=== PATIENT | male | born 1975 | race Caucasian/White ===

== ENCOUNTER 2017-03-12 22:46 | Observation (INO) | payer OTHER ==
[2017-03-12 23:00] VITALS: BMI 26.5
[2017-03-13] MEDS ORDERED: KETOROLAC TROMETHAMINE 60 MG/2 ML VIAL IM ONE (00:18)
[2017-03-13] MEDS ORDERED: diazePAM 2 MG TABLET PO ONE (00:19)
[2017-03-13] MEDS ORDERED: KETOROLAC TROMETHAMINE 60 MG/2 ML VIAL ONE (00:27)
[2017-03-13] MEDS ORDERED: diazePAM 2 MG TABLET ONE (00:27)
--- NOTE | 2017-03-13 00:50 | PDOC ---
History of Present Illness - History of Present Illness Initial Comments: 03/13/17 00:50 The patient is a 41 year old male who was BIBA, with no significant past medical history, and presents to the emergency department with lower back pain radiating down his leg. Patient states that around 6:00 pm today he went to the bathroom and began experiencing lower back pain that radiates down his leg. He states that he took Diazepam today but it did not relieve his pain. Patient states he is unable to ambulate due to his pain. He denies any recent fevers, chills, headache or dizziness. He denies any recent nausea, vomit, diarrhea or constipation. He denies any recent chest pain or shortness of breath. He denies any recent dysuria, frequency, urgency or hematuria. Allergies: NKA Past surgical history: cholecystectomy Social History: Nonsmoker. Denies EtOH use and recreational drug use. Primary Care Physician: Cristina Rodriguez <Anastasia Sykes - Last Filed: 03/13/17 00:50> <Harriett Mendez - Last Filed: 03/20/17 00:02> - General Chief Complaint: Back Pain Stated Complaint: BACK PAIN Time Seen by Provider: 03/12/17 23:21 Past History <Anastasia Sykes - Last Filed: 03/13/17 00:50> - Past Medical History COPD: No - Surgical History Cholecystectomy: Yes - Suicide/Smoking/Psychosocial Hx Smoking History: Never smoked Have you smoked in the past 12 months: Yes Number of Cigarettes Smoked Daily: 1 Information on smoking cessation initiated: No Hx Alcohol Use: No Drug/Substance Use Hx: No Substance Use Type: None <Harriett Mendez - Last Filed: 03/20/17 00:02> - Past Medical History Allergies/Adverse Reactions: Allergies Allergy/AdvReac Type Severity Reaction Status Date / Time No Known Allergies Allergy Verified 01/21/16 11:29 Home Medications: Ambulatory Orders Docusate Sodium [Colace -] 300 mg PO HS capsule 03/16/17 Gabapentin [Neurontin -] 300 mg PO TID #60 capsule 03/16/17 Methylprednisolone [Medrol Dose Faustino] 4 mg PO ASDIR #21 tablet 03/16/17 Polyethylene Glycol 3350 [Miralax 119 gm Btl -] 17 gm PO BID bottle 03/16/17 Tramadol HCl [Ultram -] 50 mg PO Q6H PRN #20 tablet MDD 4 03/16/17 Review of Systems - Review of Systems Comments:: 03/13/17 00:51 CONSTITUTIONAL: Absent: fever, no chills, no fatigue EYES: Absent: visual changes ENT: Absent: ear pain, no sore throat CARDIOVASCULAR: Absent: chest pain, no palpitations RESPIRATORY: Absent: cough, no SOB GI: Absent: abdominal pain, no nausea, no vomiting, no constipation, no diarrhea GENITOURINARY: Absent: dysuria, no frequency, no hematuria MUSCULOSKELETAL: Present: lower back pain, radiates down legs bilaterally. Absent: no arthralgia, SKIN: Absent: rash NEURO: Absent: headache <Anastasia Sykes - Last Filed: 03/13/17 00:50> *Physical Exam - Vital Signs Last Vital Signs Temp Pulse Resp BP Pulse Ox 97.8 F 58 L 20 141/69 99 03/12/17 22:53 03/12/17 22:53 03/12/17 22:53 03/12/17 22:53 03/12/17 22:53 - Physical Exam Comments: 03/13/17 00:51 GENERAL: Well-appearing, well-nourished. No apparent distress. HEENT: Normocephalic, atraumatic. PERRL, EOM intact. CARDIOVASCULAR: Normal S1, S2. Regular rate and rhythm. PULMONARY: Clear to auscultation bilaterally. ABDOMEN: Soft, non-distended, non-tender. EXTREMITIES: Limited ROM in lower extremities, secondary to pain. No gross deformities. SKIN: Warm, dry. No rash NEUROLOGICAL: Strength and sensation intact.No focal neurological deficits.No incontinence <Anastasia Sykes - Last Filed: 03/13/17 00:50> - Vital Signs Last Vital Signs Temp Pulse Resp BP Pulse Ox 97.8 F 58 L 20 141/69 99 03/12/17 22:53 03/12/17 22:53 03/12/17 22:53 03/12/17 22:53 03/12/17 22:53 <Harriett Mendez - Last Filed: 03/20/17 00:02> ED Treatment Course - LABORATORY CBC & Chemistry Diagram: 03/13/17 05:30 03/13/17 05:30 - RADIOLOGY Radiology Studies Ordered: Category Date Time Status LUMBAR SPINE CT W/O CONTRAST [CT] Stat CT Scan 03/13/17 00:18 Ordered <Harriett Mendez - Last Filed: 03/20/17 00:02> Medical Decision Making - Medical Decision Making 03/13/17 02:26 41-year-old male in no severe past medical history by ambulance for severe back pain. He states that he was on the toilet at 6:00 and developed severe back pain, was not able to stand. He denies any weakness or numbness in his lower legs, there is no saddle anesthesia, motor strength 5 out of 5 Patient is alert and oriented 3, lungs are clear to auscultation, abdomen soft , extremities have no deformity,. Neurologically, there are no neurovascular deficits in his lower extremities. Patient given Toradol, Valium CAT scan of the lumbar vertebra but is negative for any subluxation, fracture. There is a small disc bulge L4-L5 The patient's pain is left-sided and is in his buttocks Impression probable sciatica Patient still has some discomfort will be given Percocet Case signed out to sister <Harriett Mendez - Last Filed: 03/20/17 00:02> *DC/Admit/Observation/Transfer - Attestations Scribe Attestion: 03/13/17 00:52 Documentation prepared by Anastasia Sykes, acting as bacteriologist medical for Harriett Mendez MD. <Anastasia Sykes - Last Filed: 03/13/17 00:50> <Harriett Mendez - Last Filed: 03/20/17 00:02> Diagnosis at time of Disposition: Low back pain - Discharge Dispostion Disposition: HOME Condition at time of disposition: Improved
[2017-03-13] MEDS ORDERED: KETOROLAC TROMETHAMINE 30 MG/1 ML VIAL IVPUSH ONE (05:44)
[2017-03-13] MEDS ORDERED: diazePAM CARPU-JECT 10 MG/2 ML DISP.SYRIN IVPUSH ONE (05:44)
[2017-03-13] MEDS ORDERED: KETOROLAC TROMETHAMINE 30 MG/1 ML VIAL ONE (05:56)
[2017-03-13 06:11] LABS: BASOPHIL 0.9 % (0-2.0); EOSINOPHIL 3.2 % (0-4.5); MCH 31.3 pg (25.7-33.7); MCHC 34.8 g/dl (32.0-35.9); MEAN PLT VOLUME 8.7 fl (7.5-11.1); NEUTROPHILS 53.3 % (42.8-82.8); PLATELET COUNT 188 K/MM3 (134-434); RDW 13.3 % (11.9-15.9); WHITE BLOOD COUNT 7.1 K/mm3 (4.0-10.0)
[2017-03-13] MEDS ORDERED: LORazepam 2 MG/ML SDV VIAL ONE (06:15)
[2017-03-13 06:23] LABS: INR 1.07 (0.82-1.09); PROTHROMBIN TIME (PATIENT) 12.1 SEC (9.98-11.88)
[2017-03-13 06:33] LABS: ALK PHOS 58 U/L (45-117); ANION GAP 6 (8-16); BILIRUBIN,TOTAL 0.7 mg/dL (0.2-1.0); CALCIUM 8.9 mg/dL (8.5-10.1); CO2 30 mmol/L (21-32); GLUCOSE,RANDOM 91 mg/dL (74-106); SGOT/AST 24 U/L (15-37); SGPT/ALT 62 U/L (12-78); TOT PROT 6.6 g/dl (6.4-8.2)
--- NOTE | 2017-03-13 09:11 | PDOC ---
*Physical Exam - Vital Signs Last Vital Signs Temp Pulse Resp BP Pulse Ox 97.8 F 58 L 20 141/69 99 03/12/17 22:53 03/12/17 22:53 03/12/17 22:53 03/12/17 22:53 03/12/17 22:53 ED Treatment Course - LABORATORY CBC & Chemistry Diagram: 03/13/17 05:30 03/13/17 05:30 - ADDITIONAL ORDERS Additional order review: Laboratory Results 03/13/17 03/13/17 05:30 05:30 PT with INR 12.10 H INR 1.07 Sodium 141 Potassium 4.3 Chloride 105 Carbon Dioxide 30 Anion Gap 6 L BUN 13 Creatinine 1.0 Creat Clearance w eGFR > 60 Random Glucose 91 Calcium 8.9 Total Bilirubin 0.7 AST 24 ALT 62 Alkaline Phosphatase 58 Total Protein 6.6 Albumin 4.0 03/13/17 05:30 RBC 4.85 MCV 90.0 MCHC 34.8 RDW 13.3 MPV 8.7 Neutrophils % 53.3 Lymphocytes % 35.9 Monocytes % 6.7 Eosinophils % 3.2 Basophils % 0.9 - RADIOLOGY Radiology Studies Ordered: Category Date Time Status LUMBAR SPINE MRI W/O CONTRAST [MRI] Stat MRI 03/13/17 08:15 Ordered - Medications Given in the ED: ED Medications Discontinued Medications Generic Name Dose Route Start Last Admin Trade Name Hima PRN Reason Stop Dose Admin Diazepam 2 mg 03/13/17 00:19 03/13/17 00:45 Valium - PO 03/13/17 00:20 2 mg ONCE ONE Administration Diazepam 5 mg 03/13/17 05:44 03/13/17 06:14 Valium Injection - IVPUSH 03/13/17 05:45 Not Given ONCE ONE Ketorolac Tromethamine 60 mg 03/13/17 00:18 03/13/17 00:45 Toradol Injection - IM 03/13/17 00:19 60 mg ONCE ONE Administration Ketorolac Tromethamine 30 mg 03/13/17 05:44 03/13/17 06:14 Toradol Injection - IVPUSH 03/13/17 05:45 30 mg ONCE ONE Administration Lorazepam 1 mg 03/13/17 06:14 03/13/17 06:23 Ativan Injection - IVPUSH 03/13/17 06:15 Not Given ONCE ONE Lorazepam 1 mg 03/13/17 06:22 03/13/17 06:23 Ativan Injection - IVPUSH 03/13/17 06:23 1 mg NOW ONE Administration Oxycodone/Acetaminophen 1 combo 03/13/17 02:26 03/13/17 03:00 Percocet 5/325 - PO 03/13/17 02:27 1 combo ONCE ONE Administration Medical Decision Making - Medical Decision Making 03/13/17 09:26 Patient signed out to me by overnight attending Dr. Carrion pending evaluation for intractable low back pain. Patient has received 2 doses of Toradol, Percocet, Ativan and Valium. On my evaluation this morning the patient states that the pain is minimally improved and continues to complain of 10 out of 10 pain. Right lower extremity has 4 out of 5 strength although is unclear if his strength is limited by pain or due to actual weakness.When I attempted to walk with the patient he is unable to ambulate. Will admit patient to Dr. Parker as obs for intractable lower abdominal pain. MRI ordered to rule out cauda equina syndrome. *DC/Admit/Observation/Transfer Diagnosis at time of Disposition: Low back pain - Discharge Dispostion Condition at time of disposition: Stable Admit: Yes - Referrals Referrals: Cristina Rodriguez [Primary Care Provider] - - Patient Instructions - Post Discharge Activity - Attestations Physician Attestion: 03/13/17 09:31 I, Dr. Judy Moyer MD, attest that this document has been prepared under my direction and personally reviewed by me in its entirety. I further attest, that it accurately reflects all work, treatment, procedures and medical decision -making performed by me.
--- NOTE | 2017-03-13 09:52 | HP ---
CHIEF COMPLAINT: Back pain radiating to left leg PCP: HISTORY OF PRESENT ILLNESS: 41 year-old male with no significant PMH presented to the ED with a complaint of severe low back pain radiating to his left leg. Patient states he has no history of back problems. He cares for his two small children and sometimes feels a twinge in his back from lifting and carrying them. Today he went to the bathroom to have a bowel movement. He did not strain. But while on the toilet he felt a sharp pain in his back that immediately radiated to his left leg. He managed to get to his bedroom. Patient states the pain is 10/10, he cannot describe its character. Pain is tolerable when he is lying flat and not moving. He is unable to sit up, stand, or walk secondary to severe pain. Patient denies any type of trauma. He denies fever, sweats, chills, sick contacts. 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, lives in [place] Allergies No Known Allergies Allergy (Verified 01/21/16 11:29) HOME MEDICATIONS: REVIEW OF SYSTEMS CONSTITUTIONAL: Absent: fever, chills, diaphoresis, generalized weakness, malaise, loss of appetite, weight change HEENT: Absent: rhinorrhea, nasal congestion, throat pain, throat swelling, difficulty swallowing, mouth swelling, ear pain, eye pain, visual changes CARDIOVASCULAR: Absent: chest pain, syncope, palpitations, irregular heart rate, lightheadedness , peripheral edema RESPIRATORY: Absent: cough, shortness of breath, dyspnea with exertion, orthopnea, wheezing, stridor, hemoptysis GASTROINTESTINAL: Absent: abdominal pain, abdominal distension, nausea, vomiting, diarrhea, constipation, melena, hematochezia GENITOURINARY: Absent: dysuria, frequency, urgency, hesitancy, hematuria, flank pain, genital pain MUSCULOSKELETAL: Present: back pain radiating to left thigh Absent: myalgia, arthralgia, joint swelling, neck pain SKIN: Absent: rash, itching, pallor HEMATOLOGIC/IMMUNOLOGIC: Absent: easy bleeding, easy bruising, lymphadenopathy, frequent infections ENDOCRINE: Absent: unexplained weight gain, unexplained weight loss, heat intolerance, cold intolerance NEUROLOGIC: Absent: headache, focal weakness or paresthesias, dizziness, unsteady gait, seizure, mental status changes, bladder or bowel incontinence PSYCHIATRIC: Absent: anxiety, depression, suicidal or homicidal ideation, hallucinations. PHYSICAL EXAMINATION Vital Signs - 24 hr 03/12/17 22:53 Temperature 97.8 F Pulse Rate 58 L Respiratory 20 Rate Blood Pressure 141/69 O2 Sat by Pulse 99 Oximetry (%) GENERAL: Awake, alert, and fully oriented, in no acute distress. HEAD: Normal with no signs of trauma. EYES: Pupils equal, round and reactive to light, extraocular movements intact, sclera anicteric, conjunctiva clear. No lid lag. EARS, NOSE, THROAT: Ears normal, nares patent, oropharynx clear without exudates. Moist mucous membranes. NECK: Normal range of motion, supple without lymphadenopathy, JVD, or masses. LUNGS: Breath sounds equal, clear to auscultation bilaterally. No wheezes, and no crackles. No accessory muscle use. HEART: Regular rate and rhythm, normal S1 and S2 without murmur, rub or gallop. ABDOMEN: Soft, nontender, not distended, normoactive bowel sounds, no guarding, no rebound, no masses. No hepatomegaly or splenomegaly. UPPER EXTREMITIES: 2+ pulses, warm, well-perfused. No cyanosis. No clubbing. No peripheral edema. LOWER EXTREMITIES: 2+ pulses, warm, well-perfused. No calf tenderness. No peripheral edema. NEUROLOGICAL: Cranial nerves II-XII intact. Normal speech. Normal gait. 5/5 motor bilateral lower extremities PSYCHIATRIC: Cooperative. Good eye contact. Appropriate mood and affect. SKIN: Warm, dry, normal turgor. Laboratory Results - last 24 hr 03/13/17 03/13/17 03/13/17 05:30 05:30 05:30 WBC 7.1 RBC 4.85 Hgb 15.2 Hct 43.6 MCV 90.0 MCH 31.3 MCHC 34.8 RDW 13.3 Plt Count 188 MPV 8.7 Neutrophils % 53.3 Lymphocytes % 35.9 Monocytes % 6.7 Eosinophils % 3.2 Basophils % 0.9 PT with INR 12.10 H INR 1.07 Sodium 141 Potassium 4.3 Chloride 105 Carbon Dioxide 30 Anion Gap 6 L BUN 13 Creatinine 1.0 Creat Clearance w eGFR > 60 Random Glucose 91 Calcium 8.9 Total Bilirubin 0.7 AST 24 ALT 62 Alkaline Phosphatase 58 Total Protein 6.6 Albumin 4.0 ASSESSMENT/PLAN 41 year-old male with no significant PMH present to the ED with severe low back pain radiating to left thigh. Lumbar disc disease with left radiculopathy --CT findings disc bulges at L4-L5 and L5-S1 --MRI pending FEN Fluids: PO intake adequate Electrolytes: replete as indicated Nutrition: regular diet Dispo: continues to require observation. Full code. Visit type - Emergency Visit Emergency Visit: Yes ED Registration Date: 03/13/17 Care time: The patient presented to the Emergency Department on the above date and was hospitalized for further evaluation of their emergent condition. - New Patient This patient is new to me today: Yes Date on this admission: 03/13/17 - Critical Care Critical Care patient: No Total Critical Care Time (in minutes): 35 Critical Care Statement: The care of this patient involved high complexity decision making to prevent further life threatening deterioration of the patient 's condition and/or to evaluate & treat vital organ system(s) failure or risk of failure.
[2017-03-13] MEDS: oxyCODONE HCL 5 MG TABLET PO PRN (17:57)
[2017-03-13] MEDS ORDERED: oxyCODONE HCL 5 MG TABLET ONE (17:57)
[2017-03-14] MEDS: oxyCODONE HCL 5 MG TABLET PO PRN ×4 (05:21→21:15)
--- NOTE | 2017-03-14 09:34 | PN ---
Physical Exam: SUBJECTIVE: Patient seen and examined. on speaker phone. Still with left radicular pain. Oxycodone makes him sleepy and he has no pain when he sleeps. Does not want morphine at this point. Unable to sit up, stand, or walk secondary to pain. Very reluctant to proceed to surgery, wants conservative medical management and physical therapy. Advised Dr. Ruiz will see him today. Agreed to daily lovenox. OBJECTIVE: Vital Signs Period Temp Pulse Resp BP Sys/Hall Pulse Ox Last 24 Hr 97.9 F-98.9 F 56-68 17-20 102-122/49-72 95-98 GENERAL: The patient is awake, alert, and fully oriented, in mild distress secondary to pain. Irritable. LUNGS: Breath sounds equal, clear to auscultation bilaterally HEART: Regular rate and rhythm, S1, S2 without murmur, rub or gallop. ABDOMEN: Soft, nontender, nondistended, normoactive bowel sounds EXTREMITIES: 2+ pulses, warm, well-perfused, no edema. NEUROLOGICAL: Cranial nerves II-XII intact. Normal speech. 5/5 motor bilateral lower extremities Active Medications Generic Name Dose Route Start Last Admin Trade Name Freq PRN Reason Stop Dose Admin Acetaminophen 650 mg 03/13/17 15:10 Tylenol - PO Q6H PRN FEVER OR PAIN Oxycodone HCl 10 mg 03/13/17 15:09 03/14/17 05:21 Roxicodone - PO 10 mg Q6H PRN Administration PAIN ASSESSMENT/PLAN 41 year-old male with no significant PMH present to the ED with severe low back pain radiating to left thigh. Lumbar disc disease with left radiculopathy --CT findings disc bulges at L4-L5 and L5-S1 --MRI: L5-S1 small left side disc protrusion indenting on left nerve root --oxycodone and tylenol for pain PRN; offered patient morphine but he declines at this time --Dr. Ruiz consult pending FEN Fluids: PO intake adequate Electrolytes: replete as indicated Nutrition: regular diet Dispo: continues to require observation. Full code. Visit type - Emergency Visit Emergency Visit: Yes ED Registration Date: 03/13/17 Care time: The patient presented to the Emergency Department on the above date and was hospitalized for further evaluation of their emergent condition. - New Patient This patient is new to me today: No - Critical Care Critical Care patient: No
[2017-03-14] MEDS: ENOXAPARIN NA (PORCINE) 40 MG/0.4 ML DISP.SYRIN SQ SCH (10:01)
--- NOTE | 2017-03-14 17:13 | PN ---
Progress Note (short form) - Note Progress Note: NEUROSURGERY CONSULT DICTATED Patient examined Chart reviewed History obtained 2 days h/o L LBP to L buttock, posterior thigh, and calf Denies weakness, bowel/bladder dysfunction PE; AF, VSS HEENT- NC/AT; Neck- supple; Cor- RRR; Lungs- CTA B; Abd- benign; Ext- no sign of DVT, 2+ pulses Neuro- A/A/Ox4 CN- intact II-XII; Motor- 5/5 except L foot ev 4-4+; Sensation- intact LT/ vibration; DTR- 1+ B Back- tender L buttock, + SLR on L at [address] LS spine- mild spondylosis and facet arthrosis; L L5-S1 disc bulge with foramenal stenosis MRI LS spine- multilevel face arthorsis; mild L4-5 central disc bulge; L L5-S1 facet hypertrophy and small foramenal disc bulge; s slightly wollen L L5 root Steroid (medrol) Neurontin PT for modalities and truncal stabilization Also discussed possible EPSI if persistent pain Absolute majority lumbar disc herniation condition improves with time and medical treatment, though foramenal disc herniation has higher propensity of needing surgical decompression Pros and cons of treatment approaches discussed Pt would like only medical treatments was on the phone during the above discussion
[2017-03-14] MEDS: GABAPENTIN 300 MG CAPSULE (FP) PO SCH ×2 (19:03→21:16)
[2017-03-14] MEDS: ACETAMINOPHEN 325 MG TABLET (FP) PO PRN (21:15)
[2017-03-14] MEDS: methylPREDNISolone 4 MG TABLET PO SCH (21:16)
[2017-03-15] MEDS: GABAPENTIN 300 MG CAPSULE (FP) PO SCH ×3 (06:19→22:34)
--- NOTE | 2017-03-15 06:37 | CONS ---
DATE OF CONSULTATION: DATE OF DICTATION: 03/14/2017 REQUESTING PHYSICIAN: Jennifer Montes De Oca NP CHIEF COMPLAINT: Left L5 radiculopathy. HISTORY OF PRESENT ILLNESS: The patient is a 41-year-old ambidextrous male who complains of 2 days' history of acute onset left-sided back pain. He frequently lifts up his 1- and 4-year-old children but has never had any problems with them. Two days ago, he lifted up his children and felt a twinge in his left-sided lower back. He started experiencing pain radiating down into the left buttock, posterior side, and calf. He was in so much pain that he could barely get up from a toilet. There is no bowel or bladder dysfunction. He denies any weakness, numbness, or tingling. He was not able to get up and was brought in by ambulance yesterday. Even today, despite pain medication, he was not able to get up. He had received valium as well as Percocet. Percocet made him drowsy. Pain is worse with any movement. PAST MEDICAL HISTORY: Noncontributory. CURRENT MEDICATIONS: Lovenox, Roxicodone, and Tylenol. ALLERGIES: There is no known drug allergy. FAMILY HISTORY: Noncontributory except for lower back arthritis in his father. SOCIAL HISTORY: He does not smoke and only drinks alcohol socially. He is with 2 children. REVIEW OF SYSTEMS: Otherwise negative for other major constitutional, head and neck, cardiovascular, pulmonary, gastrointestinal, genitourinary, endocrinological, neurological, psychological problems except for the above. PHYSICAL EXAMINATION: Vital Signs: Temperature is 98.8, blood pressure is 136/68, with a pulse rate of 73, O2 saturation is 98% on room air. HEENT: Shows the gentleman to be normocephalic, atraumatic, anicteric. Neck: Supple with no lymphadenopathy, no carotid bruit. Coronary: Demonstrated a regular rhythm without a murmur. Lungs: Clear to auscultation bilaterally. Abdomen: Benign. Extremities: Show no signs of DVT. Distal pulses are 2+. Neurologic: She is awake, alert, and oriented x4. Cranial nerve examination is intact II-XII. Motor examination shows 5/5 strength except left foot eversion which is 4-4+. Sensory examination is intact to light touch and vibratory sensation. Deep tendon reflexes are 1+ throughout. There is no pathological long-tract sign. Musculoskeletal: Examination of the back shows left-sided sciatic notch tenderness. He has a positive straight-leg raise on the left side at 30 degrees. He also has a positive crossed straight-leg raise on the right at about 45 degrees. LABORATORY: Shows a white blood cell count of 7.1, hemoglobin is 15.2, and platelet count is 188,000. INR is 1.07. Serum sodium is 141 and potassium is 4.3, BUN is 13, and creatinine is 1.0. LFTs are normal. Lumbar spine CT scan demonstrated multilevel bilateral lumbar facet arthrosis. There is a broad-based disk bulge on the left side at L5-S1. There is no severe stenosis or acute fracture or any spondylolisthesis. MRI of the lumbar spine demonstrated mild central disk bulge at L4-5 as well as left [id number] disk bulge with impingement of the left L5 nerve root. The left L5 root looks somewhat swollen. There is facet arthrosis at multiple levels bilaterally. There is no significant central stenosis. IMPRESSION: 1. Left L5-S1 foraminal disk bulge/protrusion with acute left L5 radiculopathy. 2. Multilevel lumbar facet arthrosis. RECOMMENDATIONS: The patient presents with 2 out of 2 days' history of acute onset left-sided buttock pain radiating down into the posterior thigh and calf. He also has slight weakness and left foot eversion. Some of the examination may be pain limited, however. He has a positive straight-leg raise on the left side as well. A course of pharmacological treatment with the addition of Medrol orally as well as the Neurontin is recommended. Physical therapy should also be contemplated for both modality treatment and truncal stabilization exercises. If pharmacological treatment and physical therapy do not help him adequately, he is a candidate to consider some epidural steroid injection. The absolute majority of lumbar spine disk disease improves with physical therapy and general medical treatments. In his case, however, the disk protrusion is in the left L5-S1 foramen which has limited space to start out with. These types of disk herniation tend to have somewhat worse prognosis in terms of improvement with medical treatments alone. The above was discussed with the patient and his in detail. The pros and cons of treatment approaches were reviewed. The patient is not interested in any more invasive treatment, including epidural steroid injection at this time. All questions were answered at bedside. Nay [id number]
--- NOTE | 2017-03-15 07:48 | PN ---
Progress Note (short form) - Note Progress Note: NEUROSURGERY Some L LBP to L buttock, posterior thigh, and calf Denies weakness, bowel/bladder dysfunction Difficulty getting and sitting up PE; AF, VSS HEENT- NC/AT; Neck- supple; Cor- RRR; Lungs- CTA B; Abd- benign; Ext- no sign of DVT, 2+ pulses Neuro- A/A/Ox4 CN- intact II-XII; Motor- 5/5 except L foot eversion 4-4+; Sensation- intact LT/ vibration; DTR- 1+ B; + SLR on L at [address] LS spine- mild spondylosis and facet arthrosis; L L5-S1 disc bulge with foramenal stenosis MRI LS spine- multilevel face arthrosis; mild L4-5 central disc bulge; L L5-S1 facet hypertrophy and small foramenal disc bulge; slightly swollen L L5 root Steroid (medrol) and Neurontin PT for modalities and truncal stabilization Also discussed possible EPSI if persistent pain Absolute majority lumbar disc herniation condition improves with time and medical treatment, though foramenal disc herniation, given its location, has higher incidence of needing surgical decompression Pros and cons of treatment approaches discussed Pt would like only medical treatments
[2017-03-15] MEDS ORDERED: PT OWN MED DRAWER 7, Y5N ONE (09:33)
[2017-03-15] MEDS: traMADol HCL 50 MG TABLET PO PRN (09:35)
[2017-03-15] MEDS: methylPREDNISolone 4 MG TABLET PO SCH ×5 (09:37→22:35)
[2017-03-15] MEDS: PANTOPRAZOLE 40 MG TABLET (FP) PO SCH (09:37)
[2017-03-15] MEDS: ENOXAPARIN NA (PORCINE) 40 MG/0.4 ML DISP.SYRIN SQ SCH (09:37)
[2017-03-15] MEDS: ACETAMINOPHEN 325 MG TABLET (FP) PO PRN (11:19)
--- NOTE | 2017-03-15 12:23 | PN ---
Physical Exam: SUBJECTIVE: Patient seen and examined at bedside. present. Spent 45 minutes with patient and discussing diagnosis and treatment options. Brought computer into the room and reviewed medications. All questions answered. Patient now opts for epidural steroid injection. Called Dr. Ruiz and he will try to book OR time this afternoon. Patient advised. Patient complains of 10/10 pain with movement. 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 PT notes show patient could only walk a distance of 5 feet secondary to pain, weakness, and complaint of dizziness. OBJECTIVE: Vital Signs Period Temp Pulse Resp BP Sys/Hall Pulse Ox Last 24 Hr 98.0 F-98.8 F 62-73 18-20 118-136/61-69 98-98 GENERAL: The patient is awake, alert, and fully oriented, in mild distress secondary to pain. Irritable. LUNGS: Breath sounds equal, clear to auscultation bilaterally HEART: Regular rate and rhythm, S1, S2 without murmur, rub or gallop. ABDOMEN: Soft, nontender, nondistended, normoactive bowel sounds EXTREMITIES: 2+ pulses, warm, well-perfused, no edema. NEUROLOGICAL: Cranial nerves II-XII intact. Normal speech. 5/5 motor bilateral lower extremities. Full flexion LLE. Active Medications Generic Name Dose Route Start Last Admin Trade Name Freq PRN Reason Stop Dose Admin Acetaminophen 650 mg 03/13/17 15:10 03/15/17 11:19 Tylenol - PO 650 mg Q6H PRN Administration FEVER OR PAIN Docusate Sodium 300 mg 03/15/17 12:15 Colace - PO HS RAMSEY Enoxaparin Sodium 40 mg 03/14/17 10:00 03/15/17 09:37 Lovenox - SQ 40 mg DAILY RAMSEY Administration Gabapentin 300 mg 03/14/17 17:30 03/15/17 06:19 Neurontin - PO 300 mg TID RAMSEY Administration Sodium Chloride 1,000 mls @ 83 mls/hr 03/15/17 12:15 Normal Saline - IV ASDIR RAMSEY Methylprednisolone 4 mg 03/14/17 18:00 03/15/17 09:37 Medrol - PO 4 mg QID RAMSEY Administration Oxycodone HCl 10 mg 03/14/17 09:49 03/14/17 21:15 Roxicodone - PO 10 mg Q4H PRN Administration PAIN Pantoprazole Sodium 40 mg 03/15/17 10:00 03/15/17 09:37 Protonix - PO 40 mg DAILY RAMSEY Administration Polyethylene Glycol 17 gm 03/15/17 22:00 Miralax (For Daily Use) - PO BID RAMSEY Tramadol HCl 50 mg 03/15/17 09:13 03/15/17 09:35 Ultram - PO 50 mg Q6H PRN Administration PAIN ASSESSMENT/PLAN 41 year-old male with no significant PMH present to the ED with severe low back pain radiating to left thigh. Lumbar disc disease with left radiculopathy --CT findings disc bulges at L4-L5 and L5-S1 --MRI: L5-S1 small left side disc protrusion indenting on left nerve root --PO steroids --Ultram, tylenol for pain PRN; gabapentin TID; patient presently declining opiods because they make him sleeping and mentally dulled --plan is to go to OR this afernoon of epidural injection with Dr. Joseph GUERRERO Fluids: NS @ 83mL/hr while NPO Electrolytes: replete as indicated Nutrition: NPO pending procedure. Dispo: continues to require observation. Full code. Visit type - Emergency Visit Emergency Visit: Yes ED Registration Date: 03/13/17 Care time: The patient presented to the Emergency Department on the above date and was hospitalized for further evaluation of their emergent condition. - New Patient This patient is new to me today: No - Critical Care Critical Care patient: No
[2017-03-15] MEDS: DOCUSATE SODIUM 100 MG CAPSULE (FP) PO SCH ×2 (13:29→22:34)
[2017-03-15] MEDS: SODIUM CHLORIDE 1,000 ML IV SCH ×2 (13:29→22:32)
[2017-03-15] MEDS ORDERED: LIDOCAINE HCL 1%, 10 MG/ML (20ML VIAL) ONE (17:53)
[2017-03-15] MEDS ORDERED: methylPREDNISolone ACET (DEPO) 80 MG/1 ML VIAL ONE (17:53)
[2017-03-15] MEDS ORDERED: BUPIVACAINE HCL/PF 0.25% (2.5MG/ML) 10 ML VIAL ONE (17:53)
[2017-03-15] MEDS ORDERED: PROPOFOL 20 ML ONE (18:00)
[2017-03-15] MEDS ORDERED: BUPIVACAINE HCL/PF 0.25% (2.5MG/ML) 10 ML VIAL IJ ONE (18:14)
[2017-03-15] MEDS ORDERED: methylPREDNISolone ACET (DEPO) 80 MG/1 ML VIAL IM ONE (18:14)
[2017-03-15] MEDS ORDERED: LIDOCAINE HCL 1%, 10 MG/ML (20ML VIAL) INF ONE (18:15)
--- NOTE | 2017-03-15 21:47 | OP ---
Operative Note - Note: Operative Date: 03/15/17 Pre-Operative Diagnosis: L L5-S1 HNP with L L5 radiculopathy Operation: L L5-S1 epidural injection with fluoroscopy Post-Operative Diagnosis: Same as Pre-op Surgeon: Andrea Ruiz Anesthesiologist/CLERICAL WAREHOUSEMAN: Reinaldo Ashley Anesthesia: MAC
[2017-03-15] MEDS: POLYETHYLENE GLYCOL 3350 119 GM BTL PO SCH (22:34)
[2017-03-15] MEDS: oxyCODONE HCL 5 MG TABLET PO PRN (22:45)
[2017-03-16] MEDS: GABAPENTIN 300 MG CAPSULE (FP) PO SCH (06:43)
--- NOTE | 2017-03-16 08:33 | OP ---
DATE OF OPERATION: 03/15/2017 PREOPERATIVE DIAGNOSIS: Left L5-S1 foraminal disk herniation with intractable left L5 radiculopathy. POSTOPERATIVE DIAGNOSIS: Left L5-S1 foraminal disk herniation with intractable left L5 radiculopathy. ATTENDING SURGEON: Andrea Ruiz MD PROCEDURE: 1. Left L5-S1 epidural steroid injection. 2. Intraoperative fluoroscopy. ANESTHESIA: Local with IV sedation. ANESTHESIOLOGIST: Reinaldo Ashley MD INDICATIONS: The patient is a 41-year-old male with sudden onset of intractable lower back pain and left lower extremity radiculopathy. MRI demonstrated left L5-S1 foraminal disk herniation. Despite his oral steroids and multiple medications, he remained symptomatic. He was scheduled for the first epidural steroid injection. The risks of the procedure included, but were not limited to, bleeding, infection, spinal headache, and neurological injury. The patient understands the indication for the procedure, procedure in detail, risks and benefits and alternatives for the treatment of his lumbar condition and wished to proceed with the injection. No guarantees were given for a favorable outcome. PROCEDURE IN DETAIL: After the patient was taken to the operating room, he was placed in a prone position with a pillow under his hips. Lumbar region was cleaned with alcohol and prepped with Betadine. A skin wheal was raised with 5 mL of 1% Xylocaine. A 22-gauge spinal needle was inserted under AP and lateral fluoroscopic guidance for a right-sided approach toward the center of the spinal canal. The needle was beveled after the epidural space was reached, with loss-of- resistance technique and real-time fluoroscopic guidance. The needle bevel was turned laterally and cephalad towards the neural foramen. Depo-Medrol 80 mg and 1 mL of 0.25% Marcaine were injected. The needle was withdrawn. Sterile bandage was applied. The patient tolerated the procedure well, was returned back to supine position, moving bilateral extremities well. He did not complain of headache. Nay [id number] MTDD
--- NOTE | 2017-03-16 09:14 | PN ---
Progress Note (short form) - Note Progress Note: NEUROSURGERY S/P EPSI Some L LBP to L buttock and posterior thigh Better today Denies weakness, bowel/bladder dysfunction Sitting up at bedside PE: AF, VSS HEENT- NC/AT; Neck- supple; Cor- RRR; Lungs- CTA B; Abd- benign; Ext- no sign of DVT, 2+ pulses Neuro- A/A/Ox4 CN- intact II-XII; Motor- 5/5 except L Quad/foot eversion 4-4+ pain limited; Sensation- intact LT/vibration; DTR- 1+ B; + SLR on L at 45 degrees On medrol and Neurontin PT for modalities and truncal stabilization Absolute majority lumbar disc herniation condition improves with time and medical treatment, though foramenal disc herniation, given its location, has higher incidence of needing surgical decompression Cont meds/PT/OOB Encouraged mobilization If continued improvement with current regimen, could consider d/c home on medrol dosepack Bowel regimen Care d/w patient and
[2017-03-16] MEDS ORDERED: PT OWN MED DRAWER 7, Y5N ONE ×2 (09:35→09:42)
[2017-03-16] MEDS: PANTOPRAZOLE 40 MG TABLET (FP) PO SCH (09:39)
[2017-03-16] MEDS: ENOXAPARIN NA (PORCINE) 40 MG/0.4 ML DISP.SYRIN SQ SCH (09:40)
[2017-03-16] MEDS: POLYETHYLENE GLYCOL 3350 119 GM BTL PO SCH (09:40)
[2017-03-16] MEDS: methylPREDNISolone 4 MG TABLET PO SCH (09:40)
[2017-03-16] MEDS: traMADol HCL 50 MG TABLET PO PRN (09:43)
[2017-03-16 10:19] VITALS: BP 134/78; PULSE 60; TEMP 97.8
--- NOTE | 2017-03-16 11:28 | DS ---
Physical Exam: SUBJECTIVE: Patient seen and examined OBJECTIVE: Vital Signs Period Temp Pulse Resp BP Sys/Hall Pulse Ox Last 24 Hr 97.8 F-98.8 F 60-70 18-20 106-134/57-78 98-98 PHYSICAL EXAM GENERAL: The patient is awake, alert, and fully oriented, in no acute distress. HEAD: Normal with no signs of trauma. EYES: PERRL, extraocular movements intact, sclera anicteric, conjunctiva clear. ENT: Ears normal, nares patent, oropharynx clear without exudates, moist mucous membranes. NECK: Trachea midline, full range of motion, supple. LUNGS: Breath sounds equal, clear to auscultation bilaterally, no wheezes, no crackles, no accessory muscle use. HEART: Regular rate and rhythm, S1, S2 without murmur, rub or gallop. ABDOMEN: Soft, nontender, nondistended, normoactive bowel sounds, no guarding, no rebound, no hepatosplenomegaly, no masses. EXTREMITIES: 2+ pulses, warm, well-perfused, no edema. NEUROLOGICAL: Cranial nerves II through XII grossly intact. Normal speech, gait not observed. PSYCH: Normal mood, normal affect. SKIN: Warm, dry, normal turgor, no rashes or lesions noted. LABS HOSPITAL COURSE: Date of Admission:03/13/17 Date of Discharge: 03/16/17 Discharge Summary Reason For Visit: LOW BACK PAIN Current Active Problems Low back pain (Acute) Condition: Improved - Instructions Referrals: Critsina Rodriguez [Primary Care Provider] - Disposition: HOME - Home Medications Comprehensive Discharge Medication List: Ambulatory Orders Docusate Sodium [Colace -] 300 mg PO HS capsule 03/16/17 Gabapentin [Neurontin -] 300 mg PO TID #60 capsule 03/16/17 Methylprednisolone [Medrol Dose Faustino] 4 mg PO ASDIR #21 tablet 03/16/17 Polyethylene Glycol 3350 [Miralax 119 gm Btl -] 17 gm PO BID bottle 03/16/17 Tramadol HCl [Ultram -] 50 mg PO Q6H PRN #20 tablet MDD 4 03/16/17
== END 2017-03-16 13:44 | disposition home or self-care (01) ==
LOC: JER 22:46 → JERBED 03-13 09:32 → J8W 03-13 22:20
PROVIDERS: ADMIT Internal Medicine; ATTEND Nurse Practitioner Acute Care
DX: M51.17 Intervertebral disc disorders with radiculopathy, lumbosacral region (principal); M54.5 Low back pain
CPT/HCPCS: 36415; 72131-TC; 72148-TC; 76000-TC; 80053; 85025; 85610; 97010-GP; 97035-GP; 97116-GP; 97162-GP; 99285-25; G0283-GP; G0378